=== PATIENT | female | born 2000 | race Hispanic/Latino ===

== ENCOUNTER 2021-07-26 21:16 | Observation (INO) | payer OTHER ==
[2021-07-26] MEDS ORDERED: Acetaminophen 500 MG TAB ONE (22:08)
[2021-07-26] MEDS ORDERED: Dexamethasone 10 MG/ML VIAL ONE (22:08)
[2021-07-26 22:10] LABS: BHCG - Serum Negative (NEGATIVE); Pregs Control Background? CLEAR/WHITE (CLR/WHITE); Pregs Control Bar Appear? YES (CONTROL BAR)
[2021-07-26 22:16] LABS: ALT (SGPT) 60 U/L (8-55); AST (SGOT) 48 U/L (5-34); Albumin 4.4 g/dL (3.5-5.0); Alkaline Phosphatase 73 U/L (40-110); Anion Gap 16 mmol/L (10-20); BUN (Urea Nitrogen) 6 mg/dL (7.0-18.7); Bilirubin, Total 0.5 mg/dL (0.2-1.2); Calc. Creatinine Clearance 0 mL/min (70-130); Calcium 8.7 mg/dL (7.8-10.44); Carbon Dioxide 21 mmol/L (22-29); Chloride 105 mmol/L (98-107); Globulin 4.1 g/dL (2.4-3.5); Glucose 110 mg/dL (70-105); Protein, Total 8.5 g/dL (6.0-8.3); Sodium 139 mmol/L (136-145)
[2021-07-26 22:20] LABS: Hemoglobin 14.1 g/dL (12.0-15.5); Mean Corpuscular HGB CONC 33.9 g/dL (32.0-36.0); Mean Corpuscular Hemoglobin 26.8 pg (27.0-33.0); Mean Corpuscular Volume 78.9 fl (81.6-98.3); Mean Platelet Volume 11.1 fl (7.4-10.4); Platelet Count 270 10x3/uL (150-450); RBC Distribution Width 13.4 % (11.5-14.5); Red Blood Cell (RBC) Count 5.27 10x6/uL (3.90-5.03); White Blood Cell (WBC) Count 5.9 10x3/uL (3.5-10.5)
[2021-07-26 22:21] LABS: MDiff Complete? YES
[2021-07-26] MEDS ORDERED: Ondansetron PF 4 MG/2 ML Vial ONE (22:23)
[2021-07-26 22:28] LABS: Lymphocytes 29 % (21-51); Monocytes 10 % (0-10); Neutrophil 55 % (42-75); Reactive Lymphocytes 4 % (0-10)
[2021-07-26 22:29] LABS: Platelet Morphology Comment Appears Adequate; RBC Morphology Normal
[2021-07-26 23:01] LABS: Potassium 2.9 mmol/L (3.5-5.1)
[2021-07-26] MEDS ORDERED: Potassium Bicarbonate/Cit Ac 25 MEQ TAB ONE (23:12)
[2021-07-26] MEDS ORDERED: Ondansetron ODT 4 MG TAB PO PRN (23:46)
[2021-07-26] MEDS ORDERED: Senokot S 8.6-50 MG TAB PO PRN (23:46)
[2021-07-26] MEDS ORDERED: Acetaminophen 325 MG TAB PO PRN (23:46)
[2021-07-26] MEDS ORDERED: Ondansetron PF 4 MG/2 ML Vial IVP PRN (23:46)
[2021-07-27] MEDS ORDERED: Zinc Sulfate 220 MG CAP PO SCH (00:15)
[2021-07-27] MEDS ORDERED: Aspirin 81 mg Enteric Coated Tablet PO SCH (00:15)
[2021-07-27 00:26] VITALS: BMI 30.1
[2021-07-27] MEDS ORDERED: Ascorbic Acid 500 mg Chewable Tablet PO SCH (00:30)
[2021-07-27] MEDS ORDERED: 1/2 NS w/KCL 20 mEq 1,000 ML IV SCH (00:30)
[2021-07-27] MEDS ORDERED: Cholecalciferol 1,000 UNITS (25 MCG) TAB PO SCH (00:30)
[2021-07-27] MEDS ORDERED: Potassium Chloride 30 MEQ in Sodium Chloride 0.9% 1,000 ML IV SCH (01:00)
[2021-07-27 04:55] LABS: Anion Gap 15 mmol/L (10-20); BUN (Urea Nitrogen) 6 mg/dL (7.0-18.7); CRP (Inflammatory) 7.09 mg/dL (= or < 0.5); Calc. Creatinine Clearance 163 mL/min (70-130); Calcium 8.4 mg/dL (7.8-10.44); Carbon Dioxide 22 mmol/L (22-29); Chloride 106 mmol/L (98-107); Glucose 152 mg/dL (70-105); Potassium 4.2 mmol/L (3.5-5.1); Sodium 139 mmol/L (136-145)
[2021-07-27 05:22] LABS: Hemoglobin 12.8 g/dL (12.0-15.5); Mean Corpuscular HGB CONC 32.6 g/dL (32.0-36.0); Mean Corpuscular Volume 79.7 fl (81.6-98.3); Mean Platelet Volume 11.2 fl (7.4-10.4); Platelet Count 283 10x3/uL (150-450); RBC Distribution Width 13.3 % (11.5-14.5); Red Blood Cell (RBC) Count 4.93 10x6/uL (3.90-5.03); White Blood Cell (WBC) Count 3.7 10x3/uL (3.5-10.5)
[2021-07-27 06:06] LABS: MDiff Complete? YES; Platelet Morphology Comment Appears Adequate; RBC Morphology Normal
[2021-07-27 06:12] LABS: Lymphocytes 24 % (21-51); Monocytes 2 % (0-10); Neutrophil 74 % (42-75)
[2021-07-27] MEDS ORDERED: Dexamethasone 4 mg/ml Vial SLOW IVP SCH (09:00)
[2021-07-27] MEDS: Ascorbic Acid 500 mg Chewable Tablet PO SCH (09:55)
[2021-07-27] MEDS: Aspirin 81 mg Enteric Coated Tablet PO SCH (09:55)
[2021-07-27] MEDS: Cholecalciferol 1,000 UNITS (25 MCG) TAB PO SCH (09:56)
[2021-07-27] MEDS: Zinc Sulfate 220 MG CAP PO SCH (09:56)
[2021-07-27] MEDS: Enoxaparin Sodium 40 MG/0.4 ML SYRINGE SC SCH (09:56)
[2021-07-27] MEDS: Mometasone Furoate 220 MCG AER IH SCH ×2 (10:08→19:30)
[2021-07-27] MEDS: Benzonatate 100 MG CAP PO PRN ×2 (14:02→21:26)
[2021-07-27] MEDS: Guaifenesin DM 100-10/5 ML UDCUP PO PRN ×3 (14:02→21:41)
[2021-07-28] MEDS: Zinc Sulfate 220 MG CAP PO SCH (08:04)
[2021-07-28] MEDS: Enoxaparin Sodium 40 MG/0.4 ML SYRINGE SC SCH (08:04)
[2021-07-28] MEDS: Aspirin 81 mg Enteric Coated Tablet PO SCH (08:04)
[2021-07-28] MEDS: Cholecalciferol 1,000 UNITS (25 MCG) TAB PO SCH (08:04)
[2021-07-28] MEDS: Ascorbic Acid 500 mg Chewable Tablet PO SCH (08:04)
[2021-07-28] MEDS: Guaifenesin DM 100-10/5 ML UDCUP PO PRN (09:08)
[2021-07-28] MEDS: Mometasone Furoate 220 MCG AER IH SCH (09:47)
[2021-07-28 09:53] VITALS: TEMP 98.2
[2021-07-28 11:07] VITALS: BP 107/78
== END 2021-07-28 14:56 | disposition home or self-care (01) ==
LOC: CSHERS 21:16 → CSHTELE 23:46 → UNDOADMOB 07-27 00:07
PROVIDERS: ADMIT Family Medicine; ATTEND Family Medicine
DX: U07.1 COVID-19 (principal); J12.82 Pneumonia due to coronavirus disease 2019; E86.0 Dehydration; E87.6 Hypokalemia
CPT/HCPCS: 36415; 71045; 80048; 80053; 83735; 84703; 85025; 86140; 93005; 94760; 96372; 96374; 96376; G0378; J1100; J1650; J2405; J3480; J7050; Q0162